=== PATIENT | female | born 1990 | race Caucasian/White ===

== ENCOUNTER 2024-09-14 09:21 | Emergency (ER) | payer SELFPAY ==
[~2024-09-14] VITALS: Ht 160 cm; Wt 51.3 kg
[2024-09-14 10:08] VITALS: TEMP 98.3
[2024-09-14] MEDS: DIAZEPAM INJ 5 MG/ML 2 ML IV ONE (10:56)
[2024-09-14] MEDS: KETOROLAC TROMETHAMINE 30 MG/ML VIAL IV STA (10:56)
[2024-09-14] MEDS: SODIUM CHLORIDE 0.9% 1000ML 1,000 ML IV STA (10:56)
[2024-09-14] MEDS: ONDANSETRON HCL INJ 2MG/ML 2ML 2 MG/ML VIAL IV STA (10:57)
[2024-09-14 11:26] LABS: BASOPHILS % 0.3 % (0.0-1.0); EOSINOPHILS % 0.8 % (0.0-6.0); LYMPHOCYTES % 28.8 % (18.0-39.1); MONOCYTES % 7.6 % (4.4-11.3); NEUTROPHILS % 62.3 % (38.7-80.0); RED CELL DISTRIBUTION WIDTH 12.4 % (11.7-14.4)
[2024-09-14 11:44] LABS: CORONAVIRUS COVID-19 AG NEGATIVE (NEGATIVE); STREPTOCOCCUS GRP A ANTIGEN NEGATIVE (NEGATIVE)
[2024-09-14 11:53] LABS: EST GLOMERULAR FILTRATION RATE 117 ML/MIN (>=60)
[2024-09-14 11:55] LABS: INR 1.18
[2024-09-14 13:06] VITALS: PULSE 80; RESP 18
[2024-09-14] MEDS ORDERED: METHOCARBAMOL500 MG PO (13:07)
[2024-09-14 13:23] VITALS: BP 120/70; PULSE 77; RESP 16; TEMP 97.3; O2SAT 100
== END 2024-09-14 13:20 | disposition home or self-care (01) ==
LOC: ER 10:30
DX: R51.9 Headache, unspecified (principal); R20.2 Paresthesia of skin; M62.838 Other muscle spasm; Z11.52 Encounter for screening for COVID-19
CPT/HCPCS: 36415; 70450; 80053; 83518; 83735; 84702; 85025; 85610; 87070; 87428; 99284; J1885; J2405; J3360; J7030